=== PATIENT | male | born 1950 | race Caucasian/White ===

== ENCOUNTER → 2017-01-14 | Outpatient (CLI) | payer OTHER, MEDICARE | LOC: CIMAGING 09:46 | PROVIDERS: ATTEND Family Medicine | DX: N20.1 Calculus of ureter (principal); Z87.442 Personal history of urinary calculi | CPT/HCPCS: 74176-PO ==

== ENCOUNTER 2017-01-18 09:50 | Emergency (ER) | payer OTHER, MEDICARE ==
[2017-01-18] MEDS ORDERED: ONDANSETRON 4 MG/2 ML VIAL IVP ONE (10:04)
--- NOTE | 2017-01-18 10:13 | EDPHY ---
H & P Stated Complaint: L flank pain, n/v, known 7mm kid stone due for michael surgery Source: Patient, Family, Old records Exam Limitations: No limitations - Personal History Current Tetanus/Diphtheria Vaccine: Unsure Current Tetanus Diphtheria and Acellular Pertussis (TDAP): Unsure - Medical/Surgical History Hx Asthma: No Hx Chronic Respiratory Disease: No Hx Diabetes: No Hx Cardiac Disease: No Hx Renal Disease: No Hx Cirrhosis: No Hx Alcoholism: No Hx HIV/AIDS: No Hx Splenectomy or Spleen Trauma: No Other PMH: hyperlipidemia. IBS - Social History Smoking Status: Never smoked HPI/ROS: CHIEF COMPLAINT: Flank pain, ureteral lithiasis HISTORY OF PRESENT ILLNESS: Patient complains of worsening flank and abdominal he was diagnosed with a 7 mm ureteral stone on the left side on Thursday by an outpatient CT scan. He has been treated with [place] and Flomax. He has an appointment with his urologist Dr. Merecdes on January 22 for surgical resection. He was doing well until last night, when he noticed a sudden onset of worsening pain on the left flank. It radiates into the groin left side of the abdomen. Associated with intermittent nausea and vomiting overnight and this morning. Unable to tolerate solids this morning. Unable to tolerate his oral pain medication this morning. No fever or chills. No chest pain or shortness of breath. He does have frequent urination and some dysuria. No gross hematuria. It has been darker in appearance. No other associated complaints or modifying factors. REVIEW OF SYSTEMS: Ten systems reviewed and are negative unless otherwise noted in the HPI PAST MEDICAL HISTORY: Dyslipidemia, irritable bowel SOCIAL HISTORY: Nonsmoker. Retired. Lives here in [place] FAMILY HISTORY: Noncontributory EXAMINATION General Appearance: Alert, no distress Head: normocephalic, atraumatic Eyes: Pupils equal and round, no conjunctival pallor or injection ENT, Mouth: Mucous membranes moist. Uvula midline. Neck: Normal inspection, supple, non-tender Respiratory: Lungs are clear to auscultation. No wheezing, rhonchi or crackles Cardiovascular: Regular rate and rhythm. No murmur. Gastrointestinal: Abdomen is soft with mild left-sided tenderness. There is no distention or rigidity. There is moderate to severe left-sided CVA tenderness. No guarding. Back: non-tender, no bony abnormalities Neurological: A&O, nonfocal, normal gait Skin: Warm and dry, no rash Extremities: Nontender, no pedal edema Psychiatric: Mood and affect normal DIFFERENTIAL DIAGNOSES: Including but not limited to ureterolithiasis, renal colic, nephrolithiasis, hydronephrosis, acute kidney injury, dehydration, colitis MDM: 10:04 a.m. Ongoing left flank and abdominal pain with recent diagnosis of left-sided, 7 mm ureteral stone with renal colic. Vital signs stable. Laboratory studies, IV fluid, pain medication pending. He is in no acute distress. 11:00 a.m. Laboratory studies reveal mild elevation of the creatinine. No other significant abnormality. 12:00 p.m. Urinalysis unremarkable. I have paged the on-call urologist for the physician. He remains in moderate to severe pain. 12:20 p.m. I discussed the case with the on-call urologist Dr. Bro. He is requesting IV Toradol x1 as well as a repeat CT scan of the abdomen and pelvis. 12:30 p.m. I discussed with the patient he agrees. CT scan has been ordered. 2:00 p.m. Notified by radiologist Dr. Arnold. CT scan of the abdomen pelvis reveals a left- sided stone. It has migrated 1 cm distally. Moderate hydronephrosis noted. No other acute findings. I have paged Urology discussed. 2:13 p.m. I discussed the case again with Dr. Bro. He feels the patient is stable for discharge home at this time. He is to follow up with Dr. Mercedes for definitive care. ED precautions will be discussed. The patient is comfortable with this plan. He is tolerable at his pain level. No nausea or vomiting. No fever. We discussed return to emergency department for fever, nausea, vomiting or significant pain. We also discussed return to the emergency department for anuria. He is comfortable with this plan and discharged home stable condition. SUPERVISION: Patient was evaluated in conjunction with the supervising physician. Please see their note for details. (Edward Velez) Constitutional: Initial Vital Signs Temperature (C) 37.0 C 01/18/17 09:53 Heart Rate 63 01/18/17 09:53 Respiratory Rate 20 01/18/17 09:53 Blood Pressure 141/75 H 01/18/17 09:53 O2 Sat (%) 97 01/18/17 09:53 O2 Delivery Mode Room Air Allergies/Adverse Reactions: No Known Allergies Allergy (Unverified 01/18/17 09:52) Home Medications: Medication Instructions Recorded Flomax 01/18/17 Lipitor 01/18/17 Ondansetron Odt [Zofran Odt 4 mg 4 mg PO Q6 PRN #12 tab 01/18/17 (*)] Percocet 5/325 (*) 01/18/17 oxyCODONE HCL/ACETAMINOPHEN 1 each PO Q4-6PRN PRN #20 tablet 01/18/17 [Percocet 5-325 mg Tablet] Medical Decision Making - Diagnostics Imaging Results: Imaging Impressions Abdomen X-Ray 01/18/17 10:23 Impression: Abdomen negative for acute localizing features. The left ureteral calculus previously seen on CT is not visualized on this radiographic study. Abdomen/Pelvis CT 01/18/17 12:21 Impression: 1. Mild progression in left hydronephrosis associated with a distal left ureteral calculus which has migrated approximately 2 cm distally and is now at the L4-L5 disk space level. 2. See above report for additional findings. Results called and discussed with Edward Velez PA-C on 01/18/2017 at 1354 hours. Attention: This CT examination is specifically designed to evaluate patients who are clinically suspected of having acute obstructive uropathy. This examination does not use radiographic contrast, and as such, provides only a limited evaluation of the abdomen, pelvis, and retroperitoneum. If there is further clinical suspicion for pathological conditions other than obstructive uropathy, a complete CT evaluation of the abdomen and pelvis utilizing intravenous, oral, and rectal contrast should be considered. ED Course/Re-evaluation: I did not see this patient while he was in the emergency department. However his care was discussed with the [facility] while the patient was in the department. I agree with treatment plan and management (Joe Brannon) - Data Points Laboratory Results: Laboratory Results 01/18/17 10:15 01/18/17 10:15 01/18/17 01/18/17 01/18/17 10:15 10:15 10:15 WBC 10.67 10^3/uL H 10^3/uL (3.80-9.50) RBC 4.66 10^6/uL 10^6/uL (4.40-6.38) Hgb 15.4 g/dL g/dL (13.7-17.5) Hct 44.1 % % (40.0-51.0) MCV 94.6 fL fL (81.5-99.8) MCH 33.0 pg pg (27.9-34.1) MCHC 34.9 g/dL g/dL (32.4-36.7) RDW 12.8 % % (11.5-15.2) Plt Count 238 10^3/uL 10^3/uL (150-400) MPV 9.4 fL fL (8.7-11.7) Neut % (Auto) 78.7 % H % (39.3-74.2) Lymph % (Auto) 12.4 % L % (15.0-45.0) [place] % (Auto) 7.9 % % (4.5-13.0) Eos % (Auto) 0.2 % L % (0.6-7.6) Baso % (Auto) 0.4 % % (0.3-1.7) Nucleat RBC Rel Count 0.0 % % (0.0-0.2) Absolute Neuts (auto) 8.41 10^3/uL H 10^3/uL (1.70-6.50) Absolute Lymphs (auto) 1.32 10^3/uL 10^3/uL (1.00-3.00) Absolute Monos (auto) 0.84 10^3/uL H 10^3/uL (0.30-0.80) Absolute Eos (auto) 0.02 10^3/uL L 10^3/uL (0.03-0.40) Absolute Basos (auto) 0.04 10^3/uL 10^3/uL (0.02-0.10) Absolute Nucleated RBC 0.00 10^3/uL 10^3/uL (0-0.01) Immature Gran % 0.4 % % (0.0-1.1) Immature Gran # 0.04 10^3/uL 10^3/uL (0.00-0.10) PT 13.0 SEC SEC (12.0-15.0) INR 0.99 (0.83-1.16) APTT 27.5 SEC SEC (23.0-38.0) Sodium 140 mEq/L mEq/L (134-144) Potassium 4.5 mEq/L mEq/L (3.5-5.2) Chloride 105 mEq/L mEq/L (97-110) Carbon Dioxide 21 mEq/l L mEq/l (22-31) Anion Gap 14 mEq/L mEq/L (8-16) BUN 16 mg/dL mg/dL (7-23) Creatinine 1.4 mg/dL H mg/dL (0.7-1.3) Estimated GFR 51 Glucose 133 mg/dL H mg/dL (70-100) Calcium 8.9 mg/dL mg/dL (8.5-10.4) Total Bilirubin 2.4 mg/dL H mg/dL (0.1-1.4) Conjugated Bilirubin 0.2 mg/dL mg/dL (0.0-0.5) Unconjugated Bilirubin 2.2 mg/dL H mg/dL (0.0-1.1) AST 27 IU/L IU/L (17-59) ALT 50 IU/L IU/L (21-72) Alkaline Phosphatase 86 IU/L IU/L (38-126) Total Protein 7.6 g/dL g/dL (6.3-8.2) Albumin 4.4 g/dL g/dL (3.5-5.0) Lipase 86.0 IU/L IU/L (23-300) Urine Color Urine Appearance Urine pH Ur Specific [place] Urine Protein Urine Ketones Urine Blood Urine Nitrate Urine Bilirubin Urine Urobilinogen Ur Leukocyte Esterase Urine RBC Urine WBC Ur Epithelial Cells Urine Mucus Urine Glucose 01/18/17 09:59 WBC RBC Hgb Hct MCV MCH MCHC RDW Plt Count MPV Neut % (Auto) Lymph % (Auto) [place] % (Auto) Eos % (Auto) Baso % (Auto) Nucleat RBC Rel Count Absolute Neuts (auto) Absolute Lymphs (auto) Absolute Monos (auto) Absolute Eos (auto) Absolute Basos (auto) Absolute Nucleated RBC Immature Gran % Immature Gran # PT INR APTT Sodium Potassium Chloride Carbon Dioxide Anion Gap BUN Creatinine Estimated GFR Glucose Calcium Total Bilirubin Conjugated Bilirubin Unconjugated Bilirubin AST ALT Alkaline Phosphatase Total Protein Albumin Lipase Urine Color YELLOW Urine Appearance CLEAR Urine pH 6.0 (5.0-7.5) Ur Specific [place] 1.018 (1.002-1.030) Urine Protein NEGATIVE (NEGATIVE) Urine Ketones TRACE H (NEGATIVE) Urine Blood NEGATIVE (NEGATIVE) Urine Nitrate NEGATIVE (NEGATIVE) Urine Bilirubin NEGATIVE (NEGATIVE) Urine Urobilinogen NEGATIVE EU EU (0.2-1.0) Ur Leukocyte Esterase NEGATIVE (NEGATIVE) Urine RBC 5-10 /hpf H /hpf (0-3) Urine WBC 1-3 /hpf /hpf (0-3) Ur Epithelial Cells NONE SEEN /lpf /lpf (NONE-1+) Urine Mucus TRACE /lpf /lpf (NONE-1+) Urine Glucose NEGATIVE (NEGATIVE) Medications Given: Discontinued Medications Sodium Chloride (Ns) 1,000 mls @ 0 mls/hr IV ONCE ONE PRN Reason: Wide Open Stop: 01/18/17 10:15 Last Admin: 01/18/17 10:19 Dose: 1,000 mls Ketorolac Tromethamine (Toradol) 15 mg IVP EDNOW ONE Stop: 01/18/17 12:22 Last Admin: 01/18/17 12:35 Dose: Not Given Ketorolac Tromethamine (Toradol) 15 mg IVP EDNOW ONE Stop: 01/18/17 12:34 Last Admin: 01/18/17 12:34 Dose: 15 mg Morphine Sulfate (Morphine) 4 mg IVP EDNOW ONE Stop: 01/18/17 10:05 Last Admin: 01/18/17 10:15 Dose: 4 mg Ondansetron HCl (Zofran) 4 mg IVP EDNOW ONE Stop: 01/18/17 10:05 Last Admin: 01/18/17 10:15 Dose: 4 mg Departure - Departure Disposition: Home, Routine, Self-Care Clinical Impression: Ureteral stone with hydronephrosis Condition: Good Instructions: Renal Colic (ED), Hydronephrosis (ED), Ureteral Stones (ED) Additional Instructions: 1. Medications as discussed as needed 2. Return to ER for worsening pain, fever, chills, nausea vomiting 3. Contact Dr. Mercedes tomorrow morning for definitive care Referrals: Eri Elliott MD [Primary Care Provider] - As per Instructions Zach Mercedes MD [Medical Doctor] - As per Instructions Prescriptions: Ondansetron Odt [Zofran Odt 4 mg (*)] 4 mg PO Q6 PRN #12 tab PRN Reason: Nausea/Vomiting, Use 1st oxyCODONE HCL/ACETAMINOPHEN [Percocet 5-325 mg Tablet] 1 each PO Q4-6PRN PRN # 20 tablet PRN Reason: Pain, Breakthrough
[2017-01-18] MEDS ORDERED: NS 1,000 ML IV ONE (10:14)
[2017-01-18 10:27] LABS: % IMMATURE GRANULYOCYTES 0.4 % (0.0-1.1); ABSOLUTE IMMATURE GRANULOCYTES 0.04 10^3/uL (0.00-0.10); ADD DIFF? NO; ADD MORPH? NO; ADD SCAN? NO; ATYPICAL LYMPHOCYTE FLAG 0 (0-99); FRAGMENT RBC FLAG 0 (0-99); HEMATOCRIT 44.1 % (40.0-51.0); HEMOGLOBIN 15.4 g/dL (13.7-17.5); LEFT SHIFT FLG 10 (0-99); LIPEMIA HEMOLYSIS FLAG 90 (0-99); MEAN CELL HEMOGLOBIN CONCENTR. 34.9 g/dL (32.4-36.7); MEAN CELL VOLUME 94.6 fL (81.5-99.8); MEAN PLATELET VOLUME 9.4 fL (8.7-11.7); PLATELET CLUMPS FLAG 0 (0-99); PLATELET COUNT 238 10^3/uL (150-400); RED BLOOD CELL COUNT 4.66 10^6/uL (4.40-6.38); RED CELL DISTRIBUTION WIDTH 12.8 % (11.5-15.2)
[2017-01-18 10:36] LABS: INR 0.99 (0.83-1.16)
[2017-01-18 10:37] LABS: APTT 27.5 SEC (23.0-38.0)
[2017-01-18 10:45] LABS: ALBUMIN 4.4 g/dL (3.5-5.0); ANION GAP 14 mEq/L (8-16); ASPARTATE AMINOTRANSFERASE 27 IU/L (17-59); CALCIUM 8.9 mg/dL (8.5-10.4); CARBON DIOXIDE 21 mEq/l (22-31); CHLORIDE 105 mEq/L (97-110); CREATININE 1.4 mg/dL (0.7-1.3); GLOMERULAR FILTRATION RATE 51; GLUCOSE 133 mg/dL (70-100); POTASSIUM 4.5 mEq/L (3.5-5.2); SODIUM 140 mEq/L (134-144); TOTAL PROTEIN 7.6 g/dL (6.3-8.2)
[2017-01-18 10:46] LABS: ALANINE AMINOTRANSFERASE 50 IU/L (21-72); ALKALINE PHOSPHATASE 86 IU/L (38-126); BILIRUBIN,TOTAL 2.4 mg/dL (0.1-1.4); BILIRUBIN-CONJUGATED 0.2 mg/dL (0.0-0.5); BILIRUBIN-UNCONJUGATED 2.2 mg/dL (0.0-1.1)
[2017-01-18 11:37] LABS: COLOR YELLOW; LEUKOCYTE ESTERASE,URINE NEGATIVE (NEGATIVE); NITRITE,URINE NEGATIVE (NEGATIVE)
[2017-01-18 11:49] LABS: MUCUS TRACE /lpf (NONE-1+)
[2017-01-18] MEDS ORDERED: KETOROLAC 30 MG/1 ML SDV IVP ONE (12:21)
[2017-01-18] MEDS ORDERED: KETOROLAC 15 MG/1 ML SDV ONE (12:27)
[2017-01-18] MEDS ORDERED: KETOROLAC 15 MG/1 ML SDV IVP ONE (12:33)
[2017-01-18 14:12] VITALS: RESP 18; O2SAT 96
[2017-01-18 14:13] VITALS: TEMP 98.4
[2017-01-18 14:34] VITALS: BP 117/68; PULSE 68
== END 2017-01-18 14:33 | disposition home or self-care (01) ==
DX: N20.1 Calculus of ureter (principal); N13.30 Unspecified hydronephrosis; R11.2 Nausea with vomiting, unspecified
CPT/HCPCS: 74000; 74176; 96361; 96374; 96375; 99285; J1885; J2405

== ENCOUNTER → 2018-09-22 | Outpatient (CLI) | payer OTHER, MEDICARE | LOC: FIMAGING 14:00 | PROVIDERS: ATTEND Family Medicine | DX: R05 Cough (principal) ==